=== PATIENT | female | born 1965 | race Caucasian/White ===

== ENCOUNTER 2021-08-20 13:37 | Outpatient (CLI) | payer OTHER, SELFPAY ==
--- NOTE | 2021-08-20 13:50 | MM_ITS ---
WS: [id number] BILATERAL SCREENING DIGITAL MAMMOGRAM WITH CAD HISTORY: SCREENING COMPARISON: 11/07/2017 and 09/27/2016 Bilateral CC and MLO views submitted. Computer aided detection analyzed. Breast composition: There are scattered areas of fibroglandular density. No suspicious masses, microc alcifications or architectural distortion. MM/[place] [id number] IMPRESSION: BI-RADS: 1-Negative FOLLOW UP: 1 Year Follow-up
== END 2021-08-20 13:38 | disposition home or self-care (01) ==
LOC: RADSHAW 13:46
PROVIDERS: PCP Family Medicine; Visit Provider Family Medicine
DX: Z12.31 Encounter for screening mammogram for malignant neoplasm of breast (principal)
CPT/HCPCS: 77067

== ENCOUNTER → 2022-07-29 08:35 | Outpatient (BNVA) | payer OTHER, SELFPAY | PROVIDERS: PCP Family Medicine; Visit Provider Family Medicine | DX: Z00.00 Encounter for general adult medical examination without abnormal findings (principal); Z51.81 Encounter for therapeutic drug level monitoring; Z13.220 Encounter for screening for lipoid disorders; R53.81 Other malaise; R53.83 Other fatigue | CPT/HCPCS: 80053; 80061; 84443; 85025 ==

== ENCOUNTER → 2022-08-06 15:08 | Outpatient (BNVA) | payer OTHER, SELFPAY | PROVIDERS: PCP Family Medicine; Visit Provider Family Medicine | DX: M81.0 Age-related osteoporosis without current pathological fracture (principal); Z00.00 Encounter for general adult medical examination without abnormal findings; R53.81 Other malaise; R53.83 Other fatigue; H02.9 Unspecified disorder of eyelid; Z12.31 Encounter for screening mammogram for malignant neoplasm of breast; E78.5 Hyperlipidemia, unspecified | CPT/HCPCS: 82306 ==

== ENCOUNTER 2022-09-11 14:35 | Outpatient (CLI) | payer OTHER, SELFPAY ==
--- NOTE | 2022-09-11 15:04 | MM_ITS ---
WS: [id number] BILATERAL 3D TOMOSYNTHESIS DIGITAL SCREENING MAMMOGRAPHY WITH CAD CLINICAL INFORMATION: SCREEN HISTORY: Screening mammogram. No current complaints. COMPARISON: August 20, 2021 TECHNIQUE: Bilateral CC and MLO views. FINDINGS: The breasts are composed of heterogeneous fibroglandular density tissue, which can limit the detectio n of small underlying mass lesions. No suspicious mass, asymmetry, calcifications, or architectural d istortion. No evidence of malignancy. Vascular calcification. MM/[place] [id number] IMPRESSION: BI-RADS: 2-Benign FOLLOW UP: 1 Year Follow-up Recommend return to annual screening mammography.
== END 2022-09-11 14:36 | disposition home or self-care (01) ==
LOC: RAD 14:36
PROVIDERS: PCP Family Medicine; Visit Provider Family Medicine
DX: Z12.31 Encounter for screening mammogram for malignant neoplasm of breast (principal)
CPT/HCPCS: 77063; 77067

== ENCOUNTER → 2022-10-14 08:42 | Outpatient (BNVA) | payer OTHER, SELFPAY | PROVIDERS: PCP Family Medicine; Visit Provider Clinical Nurse Specialist Adult Health | DX: J06.9 Acute upper respiratory infection, unspecified (principal) | CPT/HCPCS: 87400 ==

== ENCOUNTER 2023-12-04 16:52 | Emergency (ER) | payer OTHER, SELFPAY ==
[2023-12-04 16:58] VITALS: BP 155/81; PULSE 96; RESP 17; TEMP 36.6; O2SAT 96
--- NOTE | 2023-12-04 17:07 | XRR_ITS ---
PROCEDURE INFORMATION: Exam: XR Chest Exam date and time: 12/04/2023 5:33 PM Age: 58 years old Clinical indication: Shortness of breath; Additional info: SOB TECHNIQUE: Imaging protocol: Radiologic exam of the chest. Views: 1 view. COMPARISON: No relevant prior studies available. FINDINGS: Lungs: Minimal linear density right mid lung laterally suggesting atelectasis or scarring. Otherwise the lungs appear clear as visualized. Essentially symmetric biapical pulmonary parenchymal/pleural densities consistent with scarring. Pleural spaces: No pleural effusion evident. Heart/Mediastinum: The heart is not enlarged. The mediastinum is not enlarged. Diaphragm: Borderline elevation of the left hemidiaphragm. Bones/joints: No acute osseous abnormality identified. XR/XR chest 1V portable [id number] IMPRESSION: No evidence of acute pneumonia or edema. 2. Bilateral predominantly apical densities favored to represent scarring. 3. Minimal scarring or atelectasis suspected in the right mid lung.
--- NOTE | 2023-12-04 17:38 | ECG_ITS ---
[facility] Test Date: 2023-12-04 Pat Name: Mallorie Lyons Department: Room: Gender: Female Head Of Music: : 1965 Requested By: Cristóbal Perez Order Number: [id number] En MD: Matthew Zuniga M.D. Measurements Intervals [place] Rate: 75 P: 54 ND: 206 QRS: 81 QRSD: 102 T: 52 QT: 391 QTc: 437 Interpretive Statements SINUS RHYTHM No previous ECG available for comparison Electronically Signed On 12-05-2023 6:50:16 NUT [employer] by Matthew Zuniga M.D. [email or web address]
[2023-12-04 17:40] LABS: Basophils # 0.1 10^3/uL (0.0-0.1); Basophils % 0.7 %; Eosinophils # 0.2 10^3/uL (0.0-0.8); Eosinophils % 2.2 %; Hematocrit 38.1 % (36-47); Lymphocytes # 2.3 10^3/uL (0.8-4.8); Lymphocytes % 34.5 %; Mean Corpuscular HGB Conc 32.5 g/dL (30-55); Mean Corpuscular Hemoglobin 27.1 pg (27-33); Mean Corpuscular Volume 83.4 fl (85-98); Mean Platelet Volume 10.9 fL (7.4-10.4); Monocytes # 0.4 10^3/uL (0.2-0.9); Monocytes % 6.1 %; Neutrophils # 3.74 10^3/uL (1.8-7.7); Neutrophils % 56.1 %; Nucleated Red Blood Cells % 0 %; Platelet Count 275 10^3/cmm (157-399); Red Blood Count 4.57 10^6/uL (3.85-5.65); Red Cell Distribution Width 12.7 % (12.1-15.1); White Blood Count 6.69 10^3/uL (3.29-11.43)
[2023-12-04 18:00] LABS: Alanine Aminotransferase 12 U/L (0-33); Albumin Level 4.4 g/dL (3.5-5.2); Alkaline Phosphatase 91 U/L (35-105); Aspartate Amino Transferase 14 U/L (0-32); Blood Urea Nitrogen 26 mg/dL (6-20); Calcium 9.4 mg/dL (8.5-10.5); Carbon Dioxide 26 mmol/L (22-29); Chloride 106 mmol/L (98-107); Globulin 2.8 g/dL (1.3-4.6); Glomerular Filtration Rate 73.4 mL/min (90-130); Glucose 128 mg/dL (65-115); Osmolality Calculated 300 mOsm/kg (285-295); Sodium 142 mmol/L (136-145); Total Bilirubin 0.2 mg/dL (0.15-1.2); Total Protein 7.2 g/dL (6.6-8.7)
--- NOTE | 2023-12-04 18:02 | ED_ITS ---
HPI - SOB/Dyspnea 2 General: Chief Complaint: Shortness of Breath/Dyspnea Stated Complaint: left side pain Time Seen by Provider: 12/04/23 17:56 Source: patient Mode of arrival: ambulatory Limitations: no limitations History of Present Illness: HPI Narrative: 58-year-old female states that she had a choking episode a week ago states she had the Heimlich performed on her states that she had felt a pop in her left rib she had increasing pain to the left rib especially with breathing since then. States very sharp in nature she denies any fever denies any cough. Associated symptoms: Reports chest pain; Deny abdominal pain, fever(s), nausea or vomiting Review of Systems 2 Const: Denies: fever(s), chills, body aches or change in appetite ENMT: Denies: throat pain or dental pain Card: Reports: chest pain Resp: Denies: dyspnea GI: Denies: abdominal pain, nausea, vomiting or diarrhea : Denies: dysuria Musc: Denies: neck pain or back pain Skin/Breast: Denies: rash Neuro: Denies: headache(s) PFSH ED 2 PFSH: Medical History Dyslipidemia Osteoporosis Social History Smoking and tobacco/nicotine status: never used tobacco/nicotine Alcohol intake: current Alcohol intake frequency: holidays/special occasions only Substance/Drug Use: never Physical Exam 2 Const: COMMON NORMALS: no acute distress, patient oriented x3 and healthy appearing HENMT: COMMON NORMALS: normocephalic and atraumatic HEAD & SCALP: n ormocephalic and atraumatic Neck/C-Spine: COMMON NORMALS: full ROM and supple Chest: COMMONS NORMALS: normal inspection of the chest OTHER: point tender over left chest Resp: COMMON NORMALS: normal respiratory effort, No retractions, No use of accessory muscles and clear to auscultation bilaterally AUSCULTATION: clear to auscultation bilaterally Cardio: COMMON NORMALS: regular rate, regular rhythm and No murmurs present (Cardio) RATE: regular rate RHYTHM: regular rhythm Extremity: COMMON NORMALS: normal to inspection and full ROM Neuro: COMMON NORMALS: patient oriented x3, moves all extremities and no focal motor deficits Psych: COMMON NORMALS: mental status grossly normal, Normal thought process present and cooperative THOUGHT PROCESS: Normal thought process present Skin: COMMON NORMALS: no rashes or lesions noted and no wounds GENERAL SKIN EXAM: no rashes or lesions noted Course 2 Vital Signs: Vital signs: Vital Signs Temperature 97.8 F 12/04/23 16:58 Pulse Rate 96 12/04/23 16:58 Respiratory Rate 17 12/04/23 16:58 Blood Pressure 155/81 12/04/23 16:58 Pulse Oximetry 96 12/04/23 16:58 Oxygen Delivery Me thod Room Air 12/04/23 16:58 MDM - SOB/Dyspnea Medical Decision Making Patient presents here with chest wall pain x-ray showed no acute findings she is well-appearing here we will prescribe her hydrocodone she is follow-up with PCP and return if worsening. Medical Records I reviewed the patient's medical records. Lab Data I reviewed the patient's lab results. 12/04/23 17:31 12/04/23 17:31 Labs/Radiology: Radiology Impressions Chest X-Ray 12/04/23 17:07 IMPRESSION: No evidence of acute pneumonia or edema. 2. Bilateral predominantly apical densities favored to represent scarring. 3. Minimal scarring or atelectasis suspected in the right mid lung. Laboratory Results WBC 6.69 10^3/uL (3.29-11.43) 12/04/23 17:31 RBC 4.57 10^6/uL (3.85-5.65) 12/04/23 17:31 Hgb 12.40 g/dL (11.27-16.99) 12/04/23 17:31 Hct 38.1 % (36-47) 12/04/23 17:31 MCV 83.4 fl (85-98) L 12/04/23 17:31 MCH 27.1 pg (27-33) 12/04/23 17:31 MCHC 32.5 g/dL (30-55) 12/04/23 17:31 RDW 12.7 % (12.1-15.1) 12/04/23 17:31 Plt Count 275 10^3/cmm (157-399) 12/04/23 17:31 MPV 10.9 fL (7.4-10.4) H 12/04/23 17:31 Neut % (Auto) 56.1 % 12/04/23 17:31 Lymph % (Auto) 34.5 % 12/04/23 17:31 [place] % (Auto) 6.1 % 12/04/23 17:31 Eos % (Auto) 2.2 % 12/04/23 17:31 Baso % (Auto) 0.7 % 12/04/23 17:31 Neut # (Auto) 3.74 10^3/uL (1.8-7.7) 12/04/23 17:31 Lymph # (Auto) 2.3 10^3/uL (0.8-4.8) 12/04/23 17:31 [place] # (Auto) 0.4 10^3/uL (0.2-0.9) 12/04/23 17: Eos # (Auto) 0.2 10^3/uL (0.0-0.8) 12/04/23 17:31 Baso # (Auto) 0.1 10^3/uL (0.0-0.1) 12/04/23 17: Nucleated RBC % (auto) 0 % 12/04/23 17: Nucleated RBCs # 0.0 /100WBC 12/04/23 17:31 Sodium 142 mmol/L (136-145) 12/04/23 17:31 Potassium 4.0 mmol/L (3.5-5.1) 12/04/23 17:31 Chloride 106 mmol/L (98-107) 12/04/23 17:31 Carbon Dioxide 26 mmol/L (22-29) 12/04/23 17:31 Anion Gap 14.0 (5-19) 12/04/23 17:31 BUN 26 mg/dL (6-20) H 12/04/23 17:31 Creatinine 0.8 mg/dL (0.5-0.9) 12/04/23 17:31 GFR Calculation 73.4 mL/min (90-130) L 12/04/23 17:31 Glucose 128 mg/dL (65-115) H 12/04/23 17:31 Calculated Osmolality 300 mOsm/kg (285-295) H 12/04/23 17:31 Calcium 9.4 mg/dL (8.5-10.5) 12/04/23 17:31 Total Bilirubin 0.2 mg/dL (0.15-1.2) 12/04/23 17:31 AST 14 U/L (0-32) 12/04/23 17:31 ALT 12 U/L (0-33) 12/04/23 17:31 Alkaline Phosphatase 91 U/L (35-105) 12/04/23 17:31 Total Protein 7.2 g/dL (6.6-8.7) 12/04/23 17:31 Albumin 4.4 g/dL (3.5-5.2) 12/04/23 17:31 Globulin 2.8 g/dL (1.3-4.6) 12/04/23 17:31 No radiology studies performed this visit EKG Data EKG 1: I personally reviewed and interpreted this EKG as follows: EKG Interpretation Date: 12/04/23 EKG interpretation time: 17:38 Interpretation: nsr hr [address] or t wave abnormalities qrs 102 qtc 419 Discharge Plan Discharge Patient Disposition: Home Clinical Impression: Chest wall pain Condition: Stable Prescriptions: New hydrocodone-acetaminophen 5-325 mg tablet 1 tab PO Q6H PRN (Reason: pain) Qty: 14 0RF No Action clindamycin HCl 300 mg capsule 300 mg PO TID 7 Days Qty: 21 0RF Discharge Orders: Discharge ED (Routine); Ordered 12/04/23 Ordered By: Cristóbal Perez Referrals: Han Montilla MD [Primary Care Provider] - 1-3 days Discharge Diet: Advance as tolerated Discharge Activity: Resume usual activity Patient Instructions: Chest Wall Pain (ED) Coding Level of Care Code ED [employer] for Andreea Bonilla
[2023-12-04] MEDS: HYDROcodone-acetaminophen 5-325 mg Tablet 1 TAB PO (18:19)
== END 2023-12-04 18:38 | disposition home or self-care (01) ==
PROVIDERS: Emergency Provider Emergency Medicine; PCP Family Medicine
DX: R07.89 Other chest pain (principal); E78.5 Hyperlipidemia, unspecified
CPT/HCPCS: 36415; 71045; 80053; 85025; 93005; 99285

== ENCOUNTER → 2024-07-27 16:10 | Outpatient (BNVA) | payer OTHER, SELFPAY | PROVIDERS: PCP Family Medicine; Visit Provider Family Medicine | DX: Z01.419 Encounter for gynecological examination (general) (routine) without abnormal findings (principal) | CPT/HCPCS: 87624 ==

== ENCOUNTER → 2024-07-30 07:56 | Outpatient (BNVA) | payer OTHER, SELFPAY | PROVIDERS: PCP Family Medicine; Visit Provider Family Medicine | DX: R53.81 Other malaise (principal); R53.83 Other fatigue; Z01.419 Encounter for gynecological examination (general) (routine) without abnormal findings; Z13.220 Encounter for screening for lipoid disorders; Z51.81 Encounter for therapeutic drug level monitoring; E55.9 Vitamin D deficiency, unspecified | CPT/HCPCS: 80053; 80061; 82306; 84443; 85025 ==

== ENCOUNTER 2024-08-11 14:52 | Outpatient (CLI) | payer OTHER, SELFPAY ==
--- NOTE | 2024-08-11 15:00 | MM_ITS ---
WS: [id number] BILATERAL 3D TOMOSYNTHESIS DIGITAL SCREENING MAMMOGRAPHY WITH CAD CLINICAL INFORMATION: Screening HISTORY: Screening mammogram. No current complaints. COMPARISON: 2021 TECHNIQUE: Bilateral CC and MLO views. FINDINGS: The breasts are composed of heterogeneous fibroglandular density tissue, which can limit the detectio n of small underlying mass lesions. No suspicious mass, asymmetry, calcifications, or architectural d istortion. No evidence of malignancy. Vascular calcifications. MM/MM [facility] tomosynthesis [id number] IMPRESSION: DENSITY: There are scattered areas of fibroglandular density. BI-RADS: 2 - Benign. FOLLOW UP: 1 Year Follow-up Recommend return to annual screening mammography.
== END 2024-08-11 14:53 | disposition home or self-care (01) ==
PROVIDERS: PCP Family Medicine; Visit Provider Family Medicine
DX: Z12.31 Encounter for screening mammogram for malignant neoplasm of breast (principal)
CPT/HCPCS: 77063; 77067

== ENCOUNTER 2025-08-30 15:20 | Outpatient (CLI) | payer OTHER, SELFPAY ==
--- NOTE | 2025-08-30 15:30 | USR_ITS ---
PROCEDURE INFORMATION: Exam: US Abdomen; Limited Exam date and time: 08/30/2025 3:32 PM Age: 60 years old Clinical indication: Abdominal pain; Localized; Right upper quadrant (ruq); Additional info: Positive dickson's sign, ruq pain TECHNIQUE: Imaging protocol: Real time ultrasound of the abdomen with image documentation. Limited exam focused on the region of clinical interest. COMPARISON: No relevant prior studies available. FINDINGS: Liver: Mild increased hepatic echogenicity. Liver measures 12.7 cm. Gallbladder: No evidence of cholelithiasis, gallbladder wall thickening or pericholecystic fluid. Other findings: No hydronephrosis. US/US gall bladder [id number] IMPRESSION: 1. Hepatic steatosis. 2. No evidence of cholecystitis.
== END 2025-08-30 15:21 | disposition home or self-care (01) ==
LOC: RAD 15:23
PROVIDERS: PCP Family Medicine; Visit Provider Family Medicine
DX: R10.11 Right upper quadrant pain (principal); K76.0 Fatty (change of) liver, not elsewhere classified
CPT/HCPCS: 76705

== ENCOUNTER 2025-09-06 12:23 | Outpatient (CLI) | payer OTHER, SELFPAY ==
--- NOTE | 2025-09-06 13:30 | CT_ITS ---
WS: [id number] CT ABDOMEN AND PELVIS WITH CONTRAST HISTORY: Abdominal pain TECHNIQUE: Imaging performed of the abdomen and pelvis with IV contrast. Single phase imaging of the abdomen. Coronal and sagittal reformats are submitted. All CT scans at [facility] use at least one of these dose optimization techniques: automated exposure control; mA and/or kV adjustment per patient size (includes targeted exams where dose is matched to clinical indication); or iterative reconstruction. IV CONTRAST: Omnipaque 350; 100 mL IV. Oral contrast: Yes. DLP: 242.63 mGy.cm COMPARISON: None available. Lower thorax: Lung bases are clear. Heart is normal size. No hiatal hernia. Liver/biliary system: Normal size with no intrahepatic dilatation. Gallbladder: Normal. No gallstones or wall thickening. No pericholecystic fluid. Pancreas: Normal size pancreas and pancreatic duct. No adjacent inflammation. Spleen: Normal size spleen. No mass or infarct. Adrenal glands: Normal. Right kidney: Normal. Left kidney: Normal. Aorta: Normal. Lymphadenopathy: None. Free fluid: None. GI tract: Stomach is mildly distended with contrast. Interposition of the colon over the liver. No colitis or obstruction identified. No appendicitis. No diverticulitis. There are a few scattered diverticula. Abdominal wall: Fat containing umbilical hernia. Pelvis: No free fluid or adenopathy within the pelvis. Bones: Unremarkable. CT/CT abdomen pelvis w con* [id number] IMPRESSION: 1. No acute abdominal pelvic abnormalities. 2. Negative gallbladder. 3. No intrahepatic duct dilatation. 4. No renal obstruction. 5. No diverticulitis or appendicitis. 6. No free fluid or adenopathy.
[2025-09-06] MEDS: iohexol 350 mg/mL 500 mL Btl (per mL) IV (13:42)
[2025-09-06] MEDS: iohexol 350 mg/mL 500 mL Btl (per mL) PO (13:42)
== END 2025-09-06 12:24 | disposition home or self-care (01) ==
LOC: RAD 12:25
PROVIDERS: PCP Family Medicine; Visit Provider Family Medicine
DX: R10.9 Unspecified abdominal pain (principal); R93.3 Abnormal findings on diagnostic imaging of other parts of digestive tract; R93.89 Abnormal findings on diagnostic imaging of other specified body structures; K57.90 Diverticulosis of intestine, part unspecified, without perforation or abscess without bleeding; K42.9 Umbilical hernia without obstruction or gangrene
CPT/HCPCS: 74177

== ENCOUNTER → 2025-10-18 07:06 | Outpatient (BNVA) | payer OTHER, SELFPAY | PROVIDERS: PCP Family Medicine; Visit Provider Family Medicine | DX: Z13.6 Encounter for screening for cardiovascular disorders (principal); E55.9 Vitamin D deficiency, unspecified; R53.81 Other malaise; R53.83 Other fatigue; E53.8 Deficiency of other specified B group vitamins; Z51.81 Encounter for therapeutic drug level monitoring | CPT/HCPCS: 80053; 80061; 82306; 82607; 84443; 85025 ==

== ENCOUNTER 2025-10-31 13:49 | Outpatient (CLI) | payer OTHER, SELFPAY ==
--- NOTE | 2025-10-31 14:00 | MM_ITS ---
WS: [id number] BILATERAL 3D TOMOSYNTHESIS DIGITAL SCREENING MAMMOGRAPHY WITH CAD CLINICAL INFORMATION: Screening HISTORY: Screening mammogram. No current complaints. COMPARISON: 2023 TECHNIQUE: Bilateral CC and MLO views. FINDINGS: Scattered fibroglandular densities bilaterally. No suspicious focal mass, asymmetry, calcifications, or architectural distortion. No evidence of malignancy. Vascular calcifications. MM/MM scr tomosynthesis [id number] IMPRESSION: DENSITY: There are scattered areas of fibroglandular density. BI-RADS: 2 - Benign. FOLLOW UP: 1 Year Follow-up Recommend return to annual screening mammography.
--- NOTE | 2025-10-31 14:30 | XR_ITS ---
WS: [id number] DEXA (DUAL ENERGY X-RAY ABSORPTIOMETRY) Bone mineral density was performed using a [employer] machine. HISTORY: osteoporosis COMPARISON: None available. Lumbar spine BMD (L1-L4): 0.730 g/cm2 T score: -3.7 Z score: -2.0 Total hip BMD: Left: 0.715 g/cm2. T score: -2.3 Z score: -1.0 Right: 0.674 g/cm2. T score: -2.6 Z score: -1.3 10 year probability of a major osteoporotic fracture is 27.9%. XR/XR DEXA axial skeleton* [id number] IMPRESSION: OSTEOPOROSIS based upon the WHO classification for females.
== END 2025-10-31 13:50 | disposition home or self-care (01) ==
LOC: RAD 13:50
PROVIDERS: PCP Family Medicine; Visit Provider Family Medicine
DX: Z12.39 Encounter for other screening for malignant neoplasm of breast (principal); Z00.00 Encounter for general adult medical examination without abnormal findings; Z13.820 Encounter for screening for osteoporosis; Z78.0 Asymptomatic menopausal state; Z12.31 Encounter for screening mammogram for malignant neoplasm of breast; M81.0 Age-related osteoporosis without current pathological fracture; R92.323 Mammographic fibroglandular density, bilateral breasts; R92.1 Mammographic calcification found on diagnostic imaging of breast
CPT/HCPCS: 77063; 77067; 77080

== ENCOUNTER 2025-11-02 09:20 | Outpatient (CLI) | payer OTHER, SELFPAY ==
--- NOTE | 2025-11-02 09:30 | MR_ITS ---
WS: [id number] MRI HEAD WITHOUT CONTRAST TECHNIQUE: Sagittal T1, T2 axial, T2 axial FLAIR, axial and coronal T1 images, axial susceptibility weighted imaging, axial diffusion weighted images, and coronal T2 images were obtained. Patient declined contrast at this time CLINICAL INFORMATION: Memory deficit COMPARISON: None. FINDINGS: No evidence of restricted diffusion to suggest acute ischemia. No suspicious intracranial signal abnormalities. Normal ambrose-white differentiation. Normal posterior fossa. Normal vascular flow voids at the skull base. No extra- axial fluid collections. Paranasal sinuses and mastoid air cells are well aerated. Normal posterior nasopharynx. No hemosiderin on the susceptibly weighted images. Normal optic chiasm and pituitary infundibulum. Temporal lobes and hippocampal formations are normal in appearance. No other acute findings. MR/MR head wo con* [id number] IMPRESSION: 1. No evidence of restricted diffusion to suggest acute ischemia. 2. Minimal small vessel changes. Mild parenchymal volume loss. 3. Mesial temporal lobes and hippocampal formations are normal in appearance. 4. No hemosiderin on the susceptibly weighted images. 5. No other suspicious findings.
== END 2025-11-02 09:21 | disposition home or self-care (01) ==
PROVIDERS: PCP Family Medicine; Visit Provider Family Medicine
DX: I67.82 Cerebral ischemia (principal); G93.89 Other specified disorders of brain
CPT/HCPCS: 70551

== ENCOUNTER → 2025-11-07 15:56 | Outpatient (BNVA) | payer OTHER, SELFPAY | PROVIDERS: PCP Family Medicine | DX: R71.8 Other abnormality of red blood cells (principal) | CPT/HCPCS: 82270 ==